=== PATIENT | female | born 1955 | race Caucasian/White ===

== ENCOUNTER 2019-12-09 09:36 | Inpatient (IN) ==
[2019-12-03 14:36] LABS: Basophils # (Auto) 0.05 K/mcL (0.00-0.20); Basophils % (Auto) 0.9 % (0.0-2.0); Eosinophils # (Auto) 0.16 K/mcL (0.00-0.70); Eosinophils % (Auto) 2.7 % (0.0-7.0); Hematocrit 33.7 % (36.0-48.0); Hemoglobin 10.7 g/dL (12.0-15.0); Lymphocytes % (Auto) 13.6 % (15.0-49.0); Mean Cell Volume 99.7 fL (80.0-100.0); Mean Corpuscular HGB Conc 31.8 g/dL (31.0-36.0); Mean Platelet Volume 9.8 fL (7.4-10.4); Monocytes % (Auto) 8.5 % (1.0-12.0); Neutrophils % (Auto) 74.3 % (38.0-78.0); Platelet Count 223 K/mcL (140-440); RBC 3.38 M/mcL (4.00-5.20); Red Cell Distribution Width 13.5 % (11.5-14.5); WBC 5.9 K/mcL (4.5-11.0)
[2019-12-03 15:35] LABS: Appearance,Urine CLOUDY (Clear); Bacteria,Urine FEW /hpf (0); Bilirubin,Urine Negative (Negative); Color,Urine YELLOW; Culture Indicated,Urine No; Glucose,Urine (UA) Negative (Negative); Ketones,Urine Negative (Negative); Leukocyte Esterase,Urine 500 /ug (Negative); Mucus,Urine FEW /hpf; Nitrate,Urine POS (Negative); Protein,Urine Negative (Negative); Specific Gravity,Urine 1.015 (1.000-1.035); Urine Blood Negative (Negative); Urine RBC 0 /hpf (0-1); Urine Squamous Epithelial Cell 5 /hpf (0-4); Urine WBC > 182 /hpf (0-4); Urobilinogen,Urine Negative
[2019-12-03 16:35] LABS: Blood Urea Nitrogen 44 mg/dL (8-23); Calcium 9.4 mg/dL (8.6-10.4); Carbon Dioxide 18 mmol/L (22-30); Chloride 105 mmol/L (96-108); Glomerular Filtration Rate 21; Glucose 109 mg/dL (70-105)
[2019-12-03 17:15] LABS: Estimated Average Glucose(eAG) 120 mg/dL; Hemoglobin A1C 5.8 % Hgb (4.0-6.0)
[~2019-12-09 09:36] MED LIST: CELECOXIB 200 MG CAPSULE PO SCH; IPRATROPIUM/ALBUTEROL 3 ML AMPUL.NEB NEB PRN; PREGABALIN 75 MG CAPSULE PO SCH; SCOPOLAMINE 1 PATCH PATCH TOPICAL PRN; ceFAZolin 2 GM in DEXTROSE 5% IN WATER 50 ML IV SCH; oxyCODONE 10 MG TAB.ER.12H PO SCH
[2019-12-09] MEDS ORDERED: GENTAMICIN SULFATE 800 MG/20 ML VIAL IR ONE (10:53)
[2019-12-09] MEDS ORDERED: MIDAZOLAM 2 MG/2 ML VIAL ONE (13:24)
[2019-12-09] MEDS ORDERED: LIDOCAINE HCL/PF 100 MG/5 ML SYRINGE IV ONE (13:24)
[2019-12-09] MEDS ORDERED: PROPOFOL 200 MG/20 ML VIAL IV ONE (13:24)
[2019-12-09] MEDS ORDERED: ROPIVACAINE HCL/PF 20 ML VIAL IJ ONE (13:24)
[2019-12-09] MEDS ORDERED: SUCCINYLCHOLINE 20 MG/ML ML IV ONE (13:24)
[2019-12-09] MEDS ORDERED: ONDANSETRON 4 MG/2 ML VIAL ONE (13:24)
[2019-12-09] MEDS ORDERED: HYDROmorphone 1 MG/ML SYRINGE ONE (13:24)
[2019-12-09] MEDS ORDERED: fentaNYL 250 MCG/5 ML VIAL IV ONE (13:24)
[2019-12-09] MEDS ORDERED: PHENYLEPHRINE 10 MG/ML VIAL ONE (13:24)
[2019-12-09] MEDS ORDERED: GLYCOPYRROLATE 0.2 MG/ML VIAL IV ONE (13:24)
[2019-12-09] MEDS ORDERED: DEXAMETHASONE 10 MG/ML VIAL ONE (13:24)
[2019-12-09] MEDS ORDERED: TRANEXAMIC ACID 1,000 MG/10 ML VIAL IV ONE ×2 (13:24→14:56)
[2019-12-09] MEDS ORDERED: KETAMINE 100 MG/ML ML ONE (13:24)
[2019-12-09] MEDS ORDERED: MEPERIDINE 50 MG/ML INJECTION IM PRN (14:17)
[2019-12-09] MEDS ORDERED: METOPROLOL TARTRATE 5 MG/5 ML VIAL IV PRN (14:17)
[2019-12-09] MEDS ORDERED: ONDANSETRON 4 MG/2 ML VIAL IV PRN ×2 (14:17→14:56)
[2019-12-09] MEDS ORDERED: FLUMAZENIL 0.1 MG/ML ML IV PRN (14:17)
[2019-12-09] MEDS ORDERED: ACETAMINOPHEN 1,000 MG/100 ML BOTTLE IV ONE (14:17)
[2019-12-09] MEDS ORDERED: MEPERIDINE 25 MG/ML SYRINGE IV PRN (14:17)
[2019-12-09] MEDS ORDERED: LACTATED RINGERS 250 ML IV PRN (14:17)
[2019-12-09] MEDS ORDERED: NALOXONE HCL 0.4 MG/ML VIAL IV PRN (14:17)
[2019-12-09] MEDS ORDERED: LABETALOL 5 MG/ML ML IV PRN (14:17)
[2019-12-09] MEDS ORDERED: BENZOCAINE/MENTHOL 1 LOZENGE PO PRN ×2 (14:17→14:56)
[2019-12-09] MEDS ORDERED: PROMETHAZINE 25 MG/ML VIAL IV PRN (14:17)
[2019-12-09] MEDS ORDERED: METHOCARBAMOL 1,000 MG/10 ML VIAL IV PRN (14:17)
[2019-12-09] MEDS ORDERED: IPRATROPIUM/ALBUTEROL 3 ML AMPUL.NEB NEB PRN (14:17)
[2019-12-09] MEDS ORDERED: PROMETHAZINE 25 MG/ML VIAL IM PRN (14:17)
[2019-12-09] MEDS ORDERED: fentaNYL 100 MCG/2 ML VIAL IV PRN (14:17)
[2019-12-09] MEDS ORDERED: LACTATED RINGERS 1,000 ML IV SCH (14:30)
--- NOTE | 2019-12-09 14:55 | General Surgery Procedure Note ---
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
[2019-12-09] MEDS ORDERED: BISACODYL 10 MG SUPP.RECT PR PRN (14:56)
[2019-12-09] MEDS ORDERED: METHOCARBAMOL 750 MG TABLET PO PRN (14:56)
[2019-12-09] MEDS ORDERED: ONDANSETRON 4 MG ODT TABLET SL PRN (14:56)
[2019-12-09] MEDS ORDERED: POLYETHYLENE GLYCOL 3350 17 GM PACKET PO PRN (14:56)
[2019-12-09] MEDS ORDERED: DEXTROSE 31 GM ORAL.SUSP PO PRN (14:56)
[2019-12-09] MEDS ORDERED: DEXTROSE 50% 50 ML VIAL IV PRN (14:56)
[2019-12-09] MEDS ORDERED: MAGNESIUM HYDROXIDE 30 ML ORAL.SUSP PO PRN (14:56)
[2019-12-09] MEDS ORDERED: FLEETS ADULT ENEMA PR PRN (14:56)
[2019-12-09] MEDS ORDERED: KETOROLAC 15 MG/ML VIAL IV PRN (14:56)
[2019-12-09] MEDS ORDERED: morphine 4 MG/ML VIAL IV PRN (14:56)
--- NOTE | 2019-12-09 14:56 | Discharge Plan ---
Discharge Instructions - [facility] Patient Instructions Total Shoulder Protocol: Leave immobilizer in place except for bathing and ROM. Abduction pillow. Continue to wear sling until seen by physician. Codman Pendulum : These exercises use momentum produced by your body to move your shoulder joint. Bend your knees and shift your weight to your front leg, then back, allowing your arm to swing in the same directions. Using the same technique, alternately shift your weight between your right and left legs, allowing your arm to swing from side to side. These exercises are also performed in counterclockwise and clockwise circular motions. Typically these exercises are performed several times per day, for a set number repetitions or minutes, such as 20 times in a row or 5 minutes at a time. Discharge Plan Patient/Caregiver Discharge Instructions Activity: as per physical therapy Diet: Regular Diet Prescriptions: No Action pramipexole 1 mg Tablet 1 mg PO QHS RF: 0 sulfamethoxazole-trimethoprim 800-160 mg Tablet 1 tab PO DAILY RF: 0 hydrocodone-acetaminophen 10-325 mg Tablet 1 tab PO Q8H PRN (Reason: Pain) RF: 0 oxybutynin chloride 5 mg Tablet Extended Release 24hr 15 mg PO QDAY RF: 0 gabapentin 300 mg Capsule 300 mg PO QHS RF: 0 omeprazole 20 mg Capsule,Delayed Release(Dr/Ec) 40 mg PO QDAY RF: 0 triamterene-hydrochlorothiazid 75-50 mg Tablet 2 tab PO DAILY RF: 0 metformin 500 mg Tablet Extended Release 24 Hr 500 mg PO QPM RF: 0 nitrofurantoin monohyd/m-cryst 100 mg Capsule 100 mg PO DAILY RF: 0 Follow Up Plan Follow up with: Damaso Edward PA-C [Physician] - 12/24/19 11:20 am Patient Disposition: Home, Self-Care Rehab Potential: Good I certify that the patient requires SNF services: No Overall status at discharge: patient is progressing back to baseline Discharge Orders: Discharge Order (Routine); Ordered 12/10/19 Ordered By: Peña Puga
--- NOTE | 2019-12-09 16:16 | Operative Note ---
DATE OF OPERATION: 12/09/2019 PREOPERATIVE DIAGNOSIS: Left humeral stem shift with pain status post reverse total shoulder arthroplasty. POSTOPERATIVE DIAGNOSIS: Left humeral stem shift with pain status post reverse total shoulder arthroplasty. PROCEDURE: Revision reverse total shoulder arthroplasty of humeral stem and polyethylene component. SURGEON: Ashley Puga M.D. COIL WINDER SURGEON: Damaso Edward PA-C. The PA's assistance was required for the safe and efficient completion of the entire case. This providers expertise and technical skill were required throughout the case. The PA assisted with preoperative coordination, intraoperative retraction, wound closure, dressing and splint application, as well as postoperative documentation and care coordination. ANESTHESIA: General. ESTIMATED BLOOD LOSS: 100 mL. COMPLICATIONS: None noted. SPECIMENS REMOVED: Culture x1. DRAINS: None. IMPLANTS: DePuy Delta Xtend Monobloc humeral epiphysis size 1 standard, cemented, 12 mm diameter; DePuy Delta Xtend humeral polyethylene cup standard 38, +9; DePuy SmartSet GMV gentamicin bone cement 40 grams x2. INDICATIONS: The patient has a previous reverse total shoulder arthroplasty. She has had increasing and continued pain at the humeral stem. Radiographs have confirmed that there was a shift in the stem. That is why we felt that this was likely the cause of her pain. After a long discussion about treatment options, the patient elected to proceed with a revision reverse total shoulder arthroplasty of humeral stem and polyethylene component. The risks and benefits were discussed with the patient in detail including, but not limited to, the risks of anesthesia, problems with the heart or lungs related to anesthesia, infection, compromise or injury to the nerves and blood vessels, deep venous thrombosis, pulmonary embolism, pneumonia, continued pain after surgery, worsening pain or symptoms after surgery, swelling, loss of motion, instability, fracture, arm length discrepancy, and need for repeat surgery. DESCRIPTION OF PROCEDURE: The patient was seen in the preanesthesia waiting room where all questions were answered and the correct side and site were identified and marked. The patient was transferred to the operating room and administered the anesthetic and given preoperative antibiotics. A time-out was then called. The patient was placed in the modified beach chair position with all prominences well padded. The extremity was prepped and draped from the fingers up to the neck. A standard deltopectoral skin incision was created. Dissection was carried down to the deltopectoral groove and the cephalic vein was isolated medially and retracted laterally with the deltoid. Retractors were placed and the coracobrachialis was split up to the coracoacromial ligament allowing retraction of the conjoined tendon. We split the subscapularis 1 cm medial to the bicipital groove and extended the split into the rotator interval. This was tagged for later repair. The supraspinatus and infraspinatus had been previously torn and retracted. A capsular release was performed in a posterior subperiosteal direction along the humerus. The humeral head was then dislocated. We took cultures at this point. No evidence of infection or other abnormality. I inspected the glenosphere and there was no evidence of abnormality. No soft tissue abnormality was noted. Attention was turned back to the humerus. I visualized the stem and saw that it did fracture off some of the medial calcar and had shifted. However, it was not unstable on inspection and was not grossly loose. I removed the polyethylene component. I then used a flexible osteotome to tap all the way around the proximal portion of the stem. This was disengaged and we were able to back this out. The stem that was remaining in the humerus was not unstable. It had partially healed. I used a flexible osteotome all around to loosen this up as well. We screwed in the T-handle and then we were able to back-punch this out. The humeral shaft was intact. I thoroughly irrigated. I then sequentially reamed up to a size 12. I then cemented a Monobloc humeral epiphysis size 1, 12 mm stem standard in a standard fashion using a fourth generation cementing technique. I then trialed and found the delta humeral polyethylene cup standard 38, +9. It was placed and reduced and had excellent stability and motion. There were no other abnormalities noted in the shoulder. We irrigated with 3 liters of antibiotic saline and closed the subscapularis with # 2 FiberWire. We irrigated again and closed the deltopectoral interval with several # 0 Vicryl figure of eight sutures. The subcutaneous layer was closed with 2-0 Vicryl and the skin was closed with 4-0 Monocryl in a subcuticular fashion. A sterile pressure dressing was applied and the patient was placed into an abduction sling. All needle and sponge counts were correct. The patient was transferred to the recovery room in stable condition. CAIT:britt Job ID: [id number] Doc ID: [id number] Ashley Puga MD
--- NOTE | 2019-12-09 16:19 | XRay Report ---
HISTORY: Postop left shoulder arthroplasty FINDINGS: There is a well-positioned reverse left shoulder prosthesis. No fracture is present. The acromioclavicular joint is deformed and widened. There are heterotopic calcifications within the widened joint space. This may be from prior trauma with separation. Incidentally noted is a left breast implant and a band of atelectasis in the left lower lobe. IMPRESSION: Well-positioned left shoulder prosthesis Interpreted and Authenticated by: Miguel Le 12/09/19
[2019-12-09] MEDS: LACTATED RINGERS 1,000 ML IV SCH ×2 (16:45→22:23)
[2019-12-09] MEDS: INSULIN LISPRO 1 UNIT/0.01 ML UNIT SQ SCH ×2 (17:03→21:00)
[2019-12-09] MEDS: HYDROcodone/APAP 10/325MG TABLET PO PRN ×2 (17:53→20:54)
[2019-12-09] MEDS: ceFAZolin 1 GM VIAL IV SCH (20:54)
[2019-12-09] MEDS: DOCUSATE SODIUM 100 MG CAPSULE PO SCH (20:56)
[2019-12-09] MEDS ORDERED: PRAMIPEXOLE 1 MG TABLET PO SCH (21:00)
[2019-12-09] MEDS ORDERED: SENNOSIDES 1 TABLET PO SCH (21:00)
[2019-12-09] MEDS ORDERED: GABAPENTIN 300 MG CAPSULE PO SCH (21:00)
[2019-12-09] MEDS ORDERED: metFORMIN 500 MG TAB.XL.24H PO SCH (21:00)
[2019-12-09] MEDS: 0.9 % SODIUM CHLORIDE 10 ML SYRINGE IV SCH (23:53)
[2019-12-10] MEDS: 0.9 % SODIUM CHLORIDE 10 ML SYRINGE IV SCH ×2 (00:12→04:33)
[2019-12-10] MEDS: HYDROcodone/APAP 10/325MG TABLET PO PRN ×3 (01:05→09:11)
[2019-12-10] MEDS: ceFAZolin 1 GM VIAL IV SCH (04:33)
[2019-12-10] MEDS: LACTATED RINGERS 1,000 ML IV SCH (07:01)
[2019-12-10 07:05] LABS: Hematocrit 31.1 % (36.0-48.0)
[2019-12-10] MEDS: INSULIN LISPRO 1 UNIT/0.01 ML UNIT SQ SCH (07:07)
--- NOTE | 2019-12-10 07:52 | Orthopedic Progress Note ---
SUBJECTIVE Subjective Patient information: Note initiated : 12/10/19 at 7:50 am Service Date, if different from initiated Date: [] Patient: Eugenie Skinner 64 y/o F admitted on 12/09/19 for Left Reverse Total Shoulder Revision of . Chief Complaint: doing well no pain Constitutional Vitals: Vital Signs Temp Pulse Resp BP Pulse Ox 97.9 F 78 18 111/60 96 12/10/19 04:33 12/10/19 04:33 12/10/19 04:33 12/10/19 04:33 12/10/19 04:33 Period Temp Pulse Resp BP Sys/Shore Pulse Ox Last 24 Hr 97.1 F-98.0 F 62-82 9-20 87-139/46-103 93-100 Intake and Output 12/09/19 12/10/19 12/10/19 21:59 05:59 13:59 Intake Total 3163 660 Output Total 100 325 Balance 3063 335 Weight 207 lb 8 oz 193 lb 9.6 oz Intake & Output: Intake & Output 12/09/19 12/10/19 12/10/19 21:59 05:59 13:59 Intake Total 3163 660 Output Total 100 325 Balance 3063 335 Weight 207 lb 8 oz 193 lb 9.6 oz Intake: IV 323 Lactated Ringers 1,000 ml @ 125 323 mls/hr IV .Q8H [facility] Rx#: [id number] Oral 840 660 IV - Manual Only 2000 Output: Void Amount 325 Estimated Blood Loss 100 Other: Meal Dinner Percent of Meal Consumed 100% Expanded Upper Extremity Exam Shoulder exam: Present full ROM, swelling and tenderness; Absent tenderness over AC joint OBJ DATA Labs CBC & Chem 7: 12/10/19 05:27 12/03/19 11:47 Labs: Abnormal Lab Results 12/10/19 05:27 Hgb 10.0 L Hct 31.1 L Meds: Medications Hydrocodone Bitart/Acetaminophen (Baldwin 10/325mg) 0 tab PO Q4HP PRN; Protocol PRN Reason: Per Pain Protocol Last Admin: 12/10/19 04:59 Dose: 2 tab Documented by: Bisacodyl (Dulcolax) 10 mg NE Q2-3DAYS PRN PRN Reason: Constipation Dextrose (Dextrose 50%) 0 ml IV UD PRN PRN Reason: Hypoglycemia Diagnostic Test (Pha) (Accu-Chek) 1 each FS ACHS [facility] Last Admin: 12/10/19 06:59 Dose: 1 each Documented by: Docusate Sodium (Colace) 100 mg PO BID [facility] Last Admin: 12/09/19 20:56 Dose: 100 mg Documented by: Gabapentin (Neurontin) 300 mg PO QHS [facility] Last Admin: 12/09/19 20:57 Dose: 300 mg Documented by: Glucose (Insta-Glucose) 15 gm PO PRN PRN PRN Reason: Hypoglycemia Lactated Ringer's (Lactated Ringers) 1,000 mls @ 125 mls/hr IV .Q8H [facility] Last Admin: 12/10/19 07:01 Dose: Not Given Documented by: Insulin Human Lispro (Humalog) 0 unit SQ [facility]; Protocol Last Admin: 12/10/19 07:07 Dose: 2 units Documented by: Ketorolac Tromethamine (Toradol) 15 mg IV Q6HP PRN; Protocol PRN Reason: Per Pain Protocol Stop: 12/11/19 14:58 Magnesium Hydroxide (Milk Of Magnesia) 30 ml PO BIDP PRN PRN Reason: Constipation Metformin HCl (Glucophage) 500 mg PO QPM [facility] Last Admin: 12/09/19 20:56 Dose: 500 mg Documented by: Methocarbamol (Robaxin) 750 mg PO Q6HP PRN PRN Reason: Muscle Spasm Last Admin: 12/10/19 00:12 Dose: 750 mg Documented by: Morphine Sulfate (Morphine) 0 mg IV Q1HP PRN; Protocol PRN Reason: Per Pain Protocol Last Admin: 12/09/19 16:44 Dose: 4 mg Documented by: Nitrofurantoin Macrocrystals (Macrobid) 100 mg PO DAILY [facility] Omeprazole (Prilosec) 40 mg PO QDAY [facility] Ondansetron HCl (Zofran) 4 mg IV Q4HP PRN; Protocol PRN Reason: Nausea And Vomiting Ondansetron HCl (Zofran Odt) 4 mg SL Q4HP PRN; Protocol PRN Reason: Nausea And Vomiting Oxybutynin Chloride (Ditropan Xl) 15 mg PO QDAY [facility] Pneumococcal Polyvalent Vaccine (Pneumovax 23) 0.5 ml IM .ONCE ONE Stop: 12/10/19 10:01 Polyethylene Glycol (Miralax) 17 gm PO DAILYP PRN PRN Reason: Constipation Pramipexole Dihydrochloride (Mirapex) 1 mg PO QHS [facility] Last Admin: 12/09/19 20:56 Dose: 1 mg Documented by: Chrissie (Meñoot) 2 tab PO HS [facility] Last Admin: 12/09/19 21:20 Dose: Not Given Documented by: Sodium Biphosphate/Sodium Phosphate (Fleets Adult) 1 dose NE Q3-4DAYS PRN PRN Reason: Constipation Sodium Chloride (Saline Flush) 10 ml IV Q8 [facility] Last Admin: 12/10/19 04:33 Dose: 10 ml Documented by: Throat Lozenges (Cepacol) 1 lozenge PO PRN PRN PRN Reason: Sore Throat Triamterene/HCTZ (Maxzide 25) 2 cap PO DAILY IAIN A/P Narrative A/P Narrative: pod 1 s/p tsa nwb pain control dvt prophylaxis d/c planning Time Spent With Patient Time: Total time spent is greater than 50% in coordination of care (as documented) at patient's floor/unit and/or counseling patient:
[2019-12-10] MEDS ORDERED: NITROFURANTOIN SR 100 MG CAPSULE PO SCH (09:00)
[2019-12-10] MEDS ORDERED: OXYBUTYNIN CHLORIDE 5 MG TAB.XL.24H PO SCH (09:00)
[2019-12-10] MEDS ORDERED: TRIAMTERENE/HYDROCHLOROTHIAZID 1 CAP CAPSULE PO SCH (09:00)
[2019-12-10] MEDS ORDERED: OMEPRAZOLE 20 MG CAPSULE PO SCH (09:00)
[2019-12-10] MEDS: DOCUSATE SODIUM 100 MG CAPSULE PO SCH (09:14)
[2019-12-10] MEDS ORDERED: FLU VACC QS2020-21(6MOS UP)/PF 60 MCG/0.5 ML SYRINGE IM ONE (10:00)
[2019-12-10] MEDS ORDERED: PNEUMOCOCCAL 23-VAL P-SAC VAC 0.5 ML SYRINGE IM ONE (10:00)
== END 2019-12-10 12:10 | disposition home or self-care (01) | DRG 483 ==
LOC: MEDSUR 09:36
PROVIDERS: ADMIT Orthopaedic Surgery Sports Medicine; ATTEND Orthopaedic Surgery Sports Medicine